=== PATIENT | female | born 1945 | race Caucasian/White ===

== ENCOUNTER → 2016-10-01 | Outpatient (CLI) | payer MEDICARE ==
[~2016-10-01] MED LIST: ALLOPURINOL100 MG PO; ASPIRIN EC325 MG PO; ATARAX10 MG PO; CIPRO500 MG PO; COL-RITE100 M1 PO; CRESTOR20 M1 PO; DOXYCYCLINE100 M3 PO; HYDROCHLOROTH12.5 MG PO; HYDROXYZINE HCL25 M1 PO; LEVOTHYROXINE0.1 MG PO; LISINOPRIL10 M1 PO; LISINOPRIL10 MG PO; LOPRESSOR25 MG PO; METFORMIN500 MG PO; MOTRIN800 MG PO; SERTRALINE50 MG PO; SIMVASTATIN40 MG PO; SLOW MAG 110 MG64 MG PO; SYNTHROID0.175 MG PO; TRAD5TAB1 PO; VITAMIN D32000 I1 PO; XANAX0.25 MG PO; ZANTAC 150150 MG PO; ZOLOFT50 MG PO
== END | disposition home or self-care (01) ==
LOC: MAMMO 17:16
DX: Z12.31 Encounter for screening mammogram for malignant neoplasm of breast (principal)

== ENCOUNTER 2017-09-23 00:13 | Inpatient (IN) | payer MEDICARE ==
[2017-09-23] VITALS (14 sets, daily range): BP systolic 91–179; BP diastolic 23–73
[~2017-09-23] VITALS: Ht 154.9 cm; Wt 104.1 kg
--- NOTE | ~2017-09-23 | EKG ---
[place], [place] ELECTROCARDIOGRAM REPORT NAME: WAN THORNTON UNIT #: [id number] ROOM: [facility] DOCTOR: ISAAC DRAFT REPORT BIRTHDATE: [birth year] [facility] Test Date: 2017-09-23 Test Time: 00:51:26 Pat Name: WAN THORNTON Department: ER Room: [facility] Gender: F Wrapping Machine Operator: Giovany Evans : 1945 Requested By: ANILA BALDWIN Order Number: [id number] Reading MD: Sen Rivera MD Measurements Intervals [place] Rate: 125 P: 49 AK: 112 QRS: 23 QRSD: 97 T: 167 QT: 341 QTc: 492 Interpretive Statements Sinus tachycardia Probable left atrial enlargement LBBB ? endocarditis Electronically Signed On 09-24-2017 9:58:45 PDT by Sen Rivera MD CM:EKGRPT:ELECTROCARDIOGRAM REPORT [id number] ANILA MELCHOR DRAFT REPORT ANILA BALDWIN DO
--- NOTE | ~2017-09-23 | CON ---
[place], [place] REPORT OF CONSULTATION NAME: WAN THORNTON UNIT #: [id number] ROOM: [facility] DOCTOR: AREN JOHNSTONAYLA BIRTHDATE: [birth year] DOS: 09/23/2017 LOCATION: The patient is examined in the Intensive Care Unit. CHIEF COMPLAINT: Severe shortness of breath. HISTORY OF PRESENT ILLNESS: This is a 72-year-old female, who presented to the Emergency Room with shortness of breath. I was called in the middle of the night, that the patient is with sinus tachycardia and ST depressions diffusely. The patient was in a significant shortness of breath and started on BiPAP. The patient's BNP was significantly elevated. Chest x-ray revealed vascular congestion. The patient did not have any chest discomfort. She noted she felt short of breath the night before under similar circumstances, but resolved and experienced more shortness of breath. The patient has a recent weight gain. She does have orthopnea and paroxysmal nocturnal dyspnea. The patient was treated with IV diuretics, started on a heparin and nitro drip and I have ordered a stat echocardiogram. She had a myocardial infarction, required cardiac catheterization and stenting in 2016. Right now, she is on BiPAP. She denies any chest discomfort. Troponin has gone up to 4. PAST MEDICAL HISTORY: Significant for coronary artery disease, diabetes, hypertension, hyperlipidemia, myocardial infarction, and previous stent placement. PAST SURGICAL HISTORY: Appendectomy, cholecystectomy, stent placement, and tonsillectomy. HOME MEDICATIONS: Levothyroxine, Zantac, Zoloft, Tradjenta, and hydroxyzine. ALLERGIES: None. SOCIAL HISTORY: She does not drink or smoke. FAMILY HISTORY: Positive for coronary artery disease. REVIEW OF SYSTEMS: Somewhat limited because of the critical nature of the situation. HEENT: No visual disturbances or hearing problems. CARDIOVASCULAR: As per HPI. RESPIRATORY: Significant for shortness of breath, orthopnea, and PND. GASTROINTESTINAL: No nausea. No vomiting. GENITOURINARY: No dysuria. NEUROLOGICAL: No dizziness. No syncope. ENDOCRINE: Intact. PHYSICAL EXAMINATION: VITAL SIGNS: Blood pressure is 109/60, she is in sinus rhythm; respiratory rate is okay, and pulse is 86. NECK: Supple, elevated JVD. HEENT: Unremarkable. [place], [place] REPORT OF CONSULTATION NAME: WAN THORNTON UNIT #: [id number] ROOM: [facility] DOCTOR: AYLA YOUNGER MD BIRTHDATE: [birth year] LUNGS: Diminished air entry bilaterally. Few coarse rhonchi and rales. HEART: Sounds are regular, distant, positive for S4. ABDOMEN: Obese, soft, and nontender. Good bowel sounds. NEUROLOGIC: Intact. SKIN: Warm and dry. DIAGNOSTIC DATA: EKG sinus tachycardia with diffuse ST depressions. LABORATORY DATA: Sodium is 139, potassium is 4, and creatinine is elevated at 1.8. BNP is significantly elevated. Troponin is 0.97 and is peaked up. Hemoglobin is 12.8 and hematocrit is 40.5. Hemoglobin A1c is 6.6. The last troponin is 4.27. IMPRESSION: 1. Acute non-ST elevation myocardial infarction. 2. Acute pulmonary edema. 3. Hypertension. 4. Obesity. 5. Hyperlipidemia. RECOMMENDATIONS: Start the patient on heparin, nitroglycerin, beta-blockers, and a very small dose of TAMARA inhibitors, monitoring the creatinine, lipid lowering agents, and start the patient on Plavix 300 bolus and 75 daily. Consideration should be given for a heart catheterization. We will discuss with the patient in detail the risks and benefits and we will follow up. AYLA YOUNGER MD CM:CONSTR:REPORT OF CONSULTATION [id number] 09/23/17 0810 interface
[~2017-09-23 00:13] MED LIST changes: -LEVOTHYROXINE0.1 MG PO; +LEVOTHYROXINE100 MC1 PO
[2017-09-23 00:38] LABS: BASO # 0.1 10*3/uL (0.0-0.1); BASO % 0.8 % (0.0-1.0); EOS # 1.3 10*3/uL (0.0-0.4); EOS % 10.9 % (1.0-4.0); HEMATOCRIT 40.5 % (37.0-47.0); HEMOGLOBIN 12.8 g/dl (12.0-16.0); LYMPH # 2.5 10*3/uL (1.3-4.4); LYMPH % 21.8 % (27.0-41.0); MEAN CELL VOLUME 89.6 fl (81.0-99.0); MEAN CORPUSCULAR HGB 28.3 pg (27.0-31.0); MEAN CORPUSCULAR HGB CONC 31.6 g/dl (33.0-37.0); MEAN PLATELET VOLUME 9.6 fl (9.6-12.3); MONO # 0.7 10*3/uL (0.1-1.0); NEUT % 60.2 % (47.0-73.0); PLATELET COUNT AUTOMATED 260 10*3/uL (130-400); RED BLOOD COUNT 4.52 10*6/uL (4.10-5.10); RED CELL DISTRI WIDTH 15.2 % (0-14.5); WHITE BLOOD COUNT 11.6 10*3/uL (4.8-10.8)
[2017-09-23 00:46] LABS: ABG BASE EXCESS -5.7 mmol/L (-2.0-2.0); ABG HCO3 19.3 mmol/l (22-26); ABG O2 SATURATION 99.2 % (95-97); ARTERIAL BLOOD GAS PCO2 38.9 mmHg (35-45); ARTERIAL BLOOD GAS PH 7.318 (7.35-7.45)
[2017-09-23 00:49] LABS: ACT PARTIAL THROMBO TIME 23.6 SECONDS (20.8-31.5); INTERNATIONAL NORM RATIO 0.9 (2.0-3.5)
[2017-09-23 00:58] LABS: ALBUMIN 3.6 gm/dl (3.1-4.5); CREATININE 1.89 mg/dL (0.55-1.02); TOTAL PROTEIN 7.4 gm/dL (6.4-8.2)
[2017-09-23 01:01] LABS: TROPONIN I 0.971 ng/ml (<0.045)
[2017-09-23] MEDS ORDERED: OMEPRAZOLE40 MG PO (03:29)
[2017-09-23] MEDS ORDERED: CLOPIDOGREL75 MG PO (03:30)
[2017-09-23] MEDS ORDERED: LIPITOR40 MG PO (03:30)
[2017-09-23] MEDS ORDERED: ZOLOFT100 MG PO (03:32)
[2017-09-23] MEDS ORDERED: IMDUR SA30 MG PO (03:34)
[2017-09-23 06:21] LABS: BASO # 0.1 10*3/uL (0.0-0.1); BASO % 0.6 % (0.0-1.0); EOS # 0.4 10*3/uL (0.0-0.4); EOS % 3.5 % (1.0-4.0); HEMATOCRIT 34.9 % (37.0-47.0); HEMOGLOBIN 11.5 g/dl (12.0-16.0); LYMPH # 0.9 10*3/uL (1.3-4.4); LYMPH % 8.3 % (27.0-41.0); MEAN CELL VOLUME 89.9 fl (81.0-99.0); MEAN CORPUSCULAR HGB 29.6 pg (27.0-31.0); MEAN PLATELET VOLUME 9.9 fl (9.6-12.3); MONO # 0.8 10*3/uL (0.1-1.0); MONO % 7.3 % (3.0-9.0); NEUT # 8.8 10*3/uL (2.3-7.9); NEUT % 79.8 % (47.0-73.0); PLATELET COUNT AUTOMATED 201 10*3/uL (130-400); RED BLOOD COUNT 3.88 10*6/uL (4.10-5.10); RED CELL DISTRI WIDTH 15.1 % (0-14.5)
[2017-09-23 06:31] LABS: CREATININE 1.96 mg/dL (0.55-1.02); POTASSIUM 4.4 mmol/L (3.5-5.1)
[2017-09-23 06:35] LABS: FREE T4 0.77 ng/dl (0.76-1.46); PHOSPHOROUS 3.6 mg/dL (2.5-4.9)
[2017-09-23 06:42] LABS: THYROID STIM HORMONE (HS) 2.08 uIU/ml (0.358-4.75)
[2017-09-23 08:10] LABS: VITAMIN D, 25-HYDROXY 12.8 ng/mL (30-100)
[2017-09-23] MEDS ORDERED: FUROSEMIDE40 MG PO ×2 (08:16)
[2017-09-23] MEDS ORDERED: LOPRESSOR25 MG PO (08:16)
== END 2017-09-23 09:14 | disposition short-term general hospital (02) | DRG 280 ==
LOC: ED 00:13 → ICCU 02:18 → EDHOLD 02:18 → ICCU 02:47
PROVIDERS: Internal Medicine; Student in an Organized Health Care Education/Training Program
DX: I21.4 Non-ST elevation (NSTEMI) myocardial infarction (principal); N17.0 Acute kidney failure with tubular necrosis; J96.01 Acute respiratory failure with hypoxia; R65.10 Systemic inflammatory response syndrome (SIRS) of non-infectious origin without acute organ dysfunction; E11.22 Type 2 diabetes mellitus with diabetic chronic kidney disease; I13.0 Hypertensive heart and chronic kidney disease with heart failure and stage 1 through stage 4 chronic kidney disease, or unspecified chronic kidney disease; E11.65 Type 2 diabetes mellitus with hyperglycemia; I50.9 Heart failure, unspecified; E66.01 Morbid (severe) obesity due to excess calories; E87.2 Acidosis; Z68.41 Body mass index [BMI] 40.0-44.9, adult; M10.9 Gout, unspecified; E78.5 Hyperlipidemia, unspecified; D72.829 Elevated white blood cell count, unspecified; N18.3 Chronic kidney disease, stage 3 (moderate); I25.119 Atherosclerotic heart disease of native coronary artery with unspecified angina pectoris; I25.2 Old myocardial infarction; Z95.5 Presence of coronary angioplasty implant and graft; Z90.49 Acquired absence of other specified parts of digestive tract; Z90.89 Acquired absence of other organs; Z82.49 Family history of ischemic heart disease and other diseases of the circulatory system; Z83.3 Family history of diabetes mellitus; Z79.899 Other long term (current) drug therapy; Z82.3 Family history of stroke; Z85.89 Personal history of malignant neoplasm of other organs and systems

== ENCOUNTER 2020-04-28 07:12 | Inpatient (IN) | payer MEDICARE ==
[~2020-04-28] VITALS: Ht 149.8 cm; Wt 118.0 kg
[~2020-04-28 07:12] MED LIST changes: +CLOPIDOGREL75 MG PO; +FUROSEMIDE40 MG PO; +IMDUR SA30 MG PO; +LIPITOR40 MG PO; +OMEPRAZOLE40 MG PO; +ZOLOFT100 MG PO
[2020-04-28 07:14] VITALS: BP 104/58
[2020-04-28 08:00] VITALS: BP 135/58
[2020-04-28 08:17] LABS: HEMATOCRIT 36.5 % (37.0-47.0); MEAN CELL VOLUME 94.3 fl (81.0-99.0); MEAN CORPUSCULAR HGB 31.3 pg (27.0-31.0); MEAN CORPUSCULAR HGB CONC 33.2 g/dl (33.0-37.0); PLATELET COUNT AUTOMATED 142 10*3/uL (130-400); RED BLOOD COUNT 3.87 10*6/uL (4.10-5.10); RED CELL DISTRI WIDTH 13.4 % (0-14.5); WHITE BLOOD COUNT 6.7 10*3/uL (4.8-10.8)
[2020-04-28 08:24] LABS: ACT PARTIAL THROMBO TIME 32.2 SECONDS (20.0-32.1)
[2020-04-28 08:29] LABS: ALBUMIN 2.4 gm/dl (3.1-4.5); CREATININE 2.77 mg/dL (0.55-1.02); POTASSIUM 3.5 mmol/L (3.5-5.1); TOTAL PROTEIN 6.9 gm/dL (6.4-8.2)
[2020-04-28 08:34] LABS: TROPONIN I 0.332 ng/ml (<0.045)
[2020-04-28 08:38] LABS: BASOPHILS 1 % (0-1); DOHLE BODIES FEW; PLATELET SUFFICIENCY NORMAL (NORMAL); TOTAL CELLS COUNTED 100 #CELLS; VACUOLATION OF NEUTROPHILS SLIGHT
[2020-04-28 08:39] LABS: BURR CELLS FEW; POLYCHROMASIA SLIGHT; TOXIC GRANULATION SLIGHT
[2020-04-28 08:41] LABS: BILIRUBIN 1+ (Negative); BLOOD Negative (Negative); CLARITY Cloudy (Clear); COLOR Dark Yellow (Yellow); GLUCOSE Negative (Negative); KETONE Trace (Negative); LEUKO ESTERASE Trace (Negative); NITRITE Negative (Negative); SPECIFIC GRAVITY 1.025 (1.001-1.030)
[2020-04-28 08:59] LABS: BACTERIA 4+; WBC 21-30 wbc/hpf (0-5)
[2020-04-28 09:53] LABS: ABG BASE EXCESS -3.6 mmol/L (-2.0-2.0); ARTERIAL BLOOD GAS PH 7.454 (7.35-7.45); ARTERIAL BLOOD GAS PO2 71.2 (80-90)
[2020-04-28 11:12] LABS: URINE AMPHETAMINES < 1000 (1000ng/ml); URINE BARBITURATES < 200 (200ng/ml); URINE BENZODIAZEPINES < 200 (200ng/ml); URINE CANNABINOIDS (THC) < 50 (50ng/ml); URINE COCAINE < 300 (300ng/ml); URINE METHADONE < 300 (300ng/ml); URINE OPIATES < 300 (300ng/ml)
[2020-04-28 11:14] LABS: URINE PHENCYCLIDINE < 25 (25ng/ml)
[2020-04-28 16:00] VITALS: BP 125/68
[2020-04-28 20:00] VITALS: BP 155/62
[2020-04-29] VITALS: BP 129/73
[2020-04-29 06:19] LABS: CREATININE 2.73 mg/dL (0.55-1.02); POTASSIUM 3.8 mmol/L (3.5-5.1)
[2020-04-29 06:31] LABS: HEMATOCRIT 32.9 % (37.0-47.0); MEAN CELL VOLUME 91.9 fl (81.0-99.0); MEAN CORPUSCULAR HGB 30.7 pg (27.0-31.0); MEAN CORPUSCULAR HGB CONC 33.4 g/dl (33.0-37.0); MEAN PLATELET VOLUME 10.8 fl (9.6-12.3); PLATELET COUNT AUTOMATED 123 10*3/uL (130-400); RED BLOOD COUNT 3.58 10*6/uL (4.10-5.10); RED CELL DISTRI WIDTH 13.6 % (0-14.5); WHITE BLOOD COUNT 11.1 10*3/uL (4.8-10.8)
[2020-04-29 06:52] LABS: BURR CELLS FEW; PLATELET SUFFICIENCY LOW (NORMAL); TOTAL CELLS COUNTED 100 #CELLS
[2020-04-29 08:00] VITALS: BP 176/69
[2020-04-29 08:44] LABS: VITAMIN D, 25-HYDROXY 13.9 ng/mL (30-100)
[2020-04-29 12:00] VITALS: BP 154/68
[2020-04-29 16:00] VITALS: BP 150/60
[2020-04-29 20:00] VITALS: BP 182/66
[2020-04-30] VITALS (7 sets, daily range): BP systolic 152–190; BP diastolic 67–91
[2020-04-30 05:11] LABS: HEMATOCRIT 30.5 % (37.0-47.0); MEAN CELL VOLUME 92.4 fl (81.0-99.0); MEAN CORPUSCULAR HGB 30.9 pg (27.0-31.0); MEAN CORPUSCULAR HGB CONC 33.4 g/dl (33.0-37.0); MEAN PLATELET VOLUME 11.1 fl (9.6-12.3); NUCLEATED RED BLOOD CELL 0.2 % (0.0-0.0); PLATELET COUNT AUTOMATED 143 10*3/uL (130-400); RED CELL DISTRI WIDTH 14.1 % (0-14.5); WHITE BLOOD COUNT 14.1 10*3/uL (4.8-10.8)
[2020-04-30 05:17] LABS: ALBUMIN 1.8 gm/dl (3.1-4.5); CREATININE 2.62 mg/dL (0.55-1.02); FREE T4 0.35 ng/dl (0.76-1.46); POTASSIUM 3.7 mmol/L (3.5-5.1); TOTAL PROTEIN 6.2 gm/dL (6.4-8.2)
[2020-04-30 05:22] LABS: THYROID STIM HORMONE (HS) 24.6 uIU/ml (0.358-4.75)
[2020-04-30 05:48] LABS: BURR CELLS FEW; PLATELET SUFFICIENCY NORMAL (NORMAL); TOTAL CELLS COUNTED 100 #CELLS; VACUOLATION OF NEUTROPHILS SLIGHT
[2020-04-30 05:49] LABS: DOHLE BODIES FEW; TOXIC GRANULATION SLIGHT
[2020-05-01] VITALS: BP 141/78
[2020-05-01 06:27] LABS: HEMATOCRIT 27.4 % (37.0-47.0); MEAN CELL VOLUME 92.6 fl (81.0-99.0); MEAN CORPUSCULAR HGB 30.7 pg (27.0-31.0); MEAN CORPUSCULAR HGB CONC 33.2 g/dl (33.0-37.0); MEAN PLATELET VOLUME 10.7 fl (9.6-12.3); NUCLEATED RED BLOOD CELL 0.4 % (0.0-0.0); PLATELET COUNT AUTOMATED 138 10*3/uL (130-400); RED BLOOD COUNT 2.96 10*6/uL (4.10-5.10); RED CELL DISTRI WIDTH 14.7 % (0-14.5); WHITE BLOOD COUNT 9.6 10*3/uL (4.8-10.8)
[2020-05-01 06:49] LABS: ALBUMIN 1.6 gm/dl (3.1-4.5); CREATININE 2.6 mg/dL (0.55-1.02); FREE T4 0.28 ng/dl (0.76-1.46); POTASSIUM 3.7 mmol/L (3.5-5.1); TOTAL PROTEIN 5.8 gm/dL (6.4-8.2)
[2020-05-01 07:12] LABS: BURR CELLS FEW; PLATELET SUFFICIENCY NORMAL (NORMAL); ROULEAUX SLIGHT; TOTAL CELLS COUNTED 100 #CELLS; TOXIC GRANULATION SLIGHT; VACUOLATION OF NEUTROPHILS SLIGHT
[2020-05-01 07:13] LABS: POLYCHROMASIA SLIGHT
[2020-05-01 08:00] VITALS: BP 140/80
[2020-05-01 12:00] VITALS: BP 135/58
[2020-05-01 16:00] VITALS: BP 148/63
[2020-05-01 20:00] VITALS: BP 153/75
[2020-05-02] VITALS (7 sets, daily range): BP systolic 144–170; BP diastolic 46–78
[2020-05-02 06:24] LABS: HEMATOCRIT 29.7 % (37.0-47.0); MEAN CELL VOLUME 92.5 fl (81.0-99.0); MEAN CORPUSCULAR HGB 30.5 pg (27.0-31.0); MEAN PLATELET VOLUME 10.8 fl (9.6-12.3); NUCLEATED RED BLOOD CELL 0.1 10*3/uL (0.0-0.0); NUCLEATED RED BLOOD CELL 0.5 % (0.0-0.0); PLATELET COUNT AUTOMATED 177 10*3/uL (130-400); RED BLOOD COUNT 3.21 10*6/uL (4.10-5.10); RED CELL DISTRI WIDTH 15.4 % (0-14.5); WHITE BLOOD COUNT 10.8 10*3/uL (4.8-10.8)
[2020-05-02 06:54] LABS: ALBUMIN 1.5 gm/dl (3.1-4.5); CREATININE 2.41 mg/dL (0.55-1.02); FREE T4 0.49 ng/dl (0.76-1.46); POTASSIUM 3.4 mmol/L (3.5-5.1); TOTAL PROTEIN 5.9 gm/dL (6.4-8.2)
[2020-05-02 06:59] LABS: TOTAL CELLS COUNTED 100 #CELLS
[2020-05-02 07:00] LABS: BURR CELLS MODERATE; PLATELET SUFFICIENCY NORMAL (NORMAL); ROULEAUX SLIGHT; SCHISTOCYTES FEW; TOXIC GRANULATION SLIGHT
[2020-05-02 07:02] LABS: THYROID STIM HORMONE (HS) 12.5 uIU/ml (0.358-4.75)
[2020-05-03] VITALS (8 sets, daily range): BP systolic 117–164; BP diastolic 44–85
[2020-05-03 06:30] LABS: HEMATOCRIT 30.7 % (37.0-47.0); MEAN CELL VOLUME 92.2 fl (81.0-99.0); MEAN CORPUSCULAR HGB 30.3 pg (27.0-31.0); MEAN CORPUSCULAR HGB CONC 32.9 g/dl (33.0-37.0); MEAN PLATELET VOLUME 10.7 fl (9.6-12.3); NUCLEATED RED BLOOD CELL 0.2 10*3/uL (0.0-0.0); NUCLEATED RED BLOOD CELL 1.5 % (0.0-0.0); RED BLOOD COUNT 3.33 10*6/uL (4.10-5.10); RED CELL DISTRI WIDTH 16.1 % (0-14.5); WHITE BLOOD COUNT 12.4 10*3/uL (4.8-10.8)
[2020-05-03 06:36] LABS: PLATELET COUNT AUTOMATED 247 10*3/uL (130-400)
[2020-05-03 06:40] LABS: ATYPICAL LYMPHS 1 % (0-0); TOTAL CELLS COUNTED 100 #CELLS
[2020-05-03 06:41] LABS: BURR CELLS MODERATE; PLATELET SUFFICIENCY NORMAL (NORMAL); POLYCHROMASIA SLIGHT; SCHISTOCYTES FEW; TOXIC GRANULATION SLIGHT
[2020-05-03 06:52] LABS: POTASSIUM 3.9 mmol/L (3.5-5.1)
[2020-05-03 07:15] LABS: ALBUMIN 1.4 gm/dl (3.1-4.5); CREATININE 2.35 mg/dL (0.55-1.02); FREE T4 0.45 ng/dl (0.76-1.46); THYROID STIM HORMONE (HS) 10.9 uIU/ml (0.358-4.75); TOTAL PROTEIN 6.1 gm/dL (6.4-8.2)
[2020-05-03 17:46] LABS: BILIRUBIN 1+ (Negative); BLOOD Negative (Negative); CLARITY Cloudy (Clear); COLOR Dark Yellow (Yellow); GLUCOSE Negative (Negative); KETONE Negative (Negative); LEUKO ESTERASE Negative (Negative); NITRITE Negative (Negative); PH 5.5 (4.5-8.0); SPECIFIC GRAVITY 1.025 (1.001-1.030)
[2020-05-03 17:49] LABS: URINE CREATININE RANDOM 92.9 mg/dL
[2020-05-03 17:51] LABS: BACTERIA 2+; EPITHELIAL CELLS TNTC; RBC 0-2 rbc/hpf (0-2); URIC ACID CRYSTALS TRACE; WBC TNTC wbc/hpf (0-5)
[2020-05-04 06:21] LABS: MEAN CELL VOLUME 94.8 fl (81.0-99.0); MEAN CORPUSCULAR HGB 30.7 pg (27.0-31.0); MEAN CORPUSCULAR HGB CONC 32.4 g/dl (33.0-37.0); MEAN PLATELET VOLUME 10.5 fl (9.6-12.3); NUCLEATED RED BLOOD CELL 0.4 10*3/uL (0.0-0.0); NUCLEATED RED BLOOD CELL 2.4 % (0.0-0.0); PLATELET COUNT AUTOMATED 319 10*3/uL (130-400); RED BLOOD COUNT 3.06 10*6/uL (4.10-5.10); RED CELL DISTRI WIDTH 17.1 % (0-14.5); WHITE BLOOD COUNT 17.4 10*3/uL (4.8-10.8)
[2020-05-04 06:27] LABS: ALBUMIN 1.4 gm/dl (3.1-4.5); BILIRUBIN, DIRECT 3.8 mg/dL (0.0-0.2); CREATININE 2.38 mg/dL (0.55-1.02); POTASSIUM 3.8 mmol/L (3.5-5.1); TOTAL PROTEIN 6.4 gm/dL (6.4-8.2)
[2020-05-04 06:34] LABS: THYROID STIM HORMONE (HS) 13.2 uIU/ml (0.358-4.75)
[2020-05-04 06:40] LABS: FREE T4 0.29 ng/dl (0.76-1.46)
[2020-05-04 06:45] LABS: TOTAL CELLS COUNTED 100 #CELLS
[2020-05-04 06:46] LABS: BURR CELLS MODERATE; PLATELET SUFFICIENCY NORMAL (NORMAL); POLYCHROMASIA SLIGHT; ROULEAUX SLIGHT
[2020-05-04 08:00] VITALS: BP 130/66; BP 98/48
[2020-05-04 12:00] VITALS: BP 137/52
[2020-05-04 16:00] VITALS: BP 118/36
[2020-05-04 20:00] VITALS: BP 150/53
[2020-05-05] VITALS: BP 134/56
[2020-05-05 04:00] VITALS: BP 158/71
[2020-05-05 06:00] LABS: ALBUMIN 1.4 gm/dl (3.1-4.5); CREATININE 2.75 mg/dL (0.55-1.02); FREE T4 0.26 ng/dl (0.76-1.46); TOTAL PROTEIN 6.4 gm/dL (6.4-8.2)
[2020-05-05 06:06] LABS: THYROID STIM HORMONE (HS) 12.3 uIU/ml (0.358-4.75)
[2020-05-05 06:07] LABS: HEMATOCRIT 27.2 % (37.0-47.0); MEAN CELL VOLUME 93.5 fl (81.0-99.0); MEAN CORPUSCULAR HGB 30.2 pg (27.0-31.0); MEAN CORPUSCULAR HGB CONC 32.4 g/dl (33.0-37.0); MEAN PLATELET VOLUME 10.5 fl (9.6-12.3); NUCLEATED RED BLOOD CELL 0.6 10*3/uL (0.0-0.0); NUCLEATED RED BLOOD CELL 2.6 % (0.0-0.0); PLATELET COUNT AUTOMATED 373 10*3/uL (130-400); RED BLOOD COUNT 2.91 10*6/uL (4.10-5.10); RED CELL DISTRI WIDTH 17.4 % (0-14.5); WHITE BLOOD COUNT 21.4 10*3/uL (4.8-10.8)
[2020-05-05 06:52] LABS: TOTAL CELLS COUNTED 100 #CELLS
[2020-05-05 06:53] LABS: BURR CELLS FEW; PLATELET SUFFICIENCY NORMAL (NORMAL); POLYCHROMASIA SLIGHT
== END 2020-05-05 11:49 | disposition short-term general hospital (02) | DRG 871 ==
LOC: ED 07:12 → EDBD 07:16 → ED 07:16 → EDHOLD 12:14 → 5E 12:14 → ICCU 05-04 10:57
PROVIDERS: Emergency Medicine; Internal Medicine; Internal Medicine Nephrology; Student in an Organized Health Care Education/Training Program; ADMIT Family Medicine; ATTEND Family Medicine
PROC: 05HY33Z Insertion of Infusion Device into Upper Vein, Percutaneous Approach (ICD-10-PCS; principal; 2020-04-28)
PROC: B54MZZA Ultrasonography of Right Upper Extremity Veins, Guidance (ICD-10-PCS; 2020-04-28)
DX: A41.01 Sepsis due to Methicillin susceptible Staphylococcus aureus (principal); R65.21 Severe sepsis with septic shock; N17.0 Acute kidney failure with tubular necrosis; E43 Unspecified severe protein-calorie malnutrition; I33.0 Acute and subacute infective endocarditis; G93.41 Metabolic encephalopathy; I21.A1 Myocardial infarction type 2; N39.0 Urinary tract infection, site not specified; N18.4 Chronic kidney disease, stage 4 (severe); E87.1 Hypo-osmolality and hyponatremia; E87.3 Alkalosis; Z68.43 Body mass index [BMI] 50.0-59.9, adult; R09.89 Other specified symptoms and signs involving the circulatory and respiratory systems; B95.61 Methicillin susceptible Staphylococcus aureus infection as the cause of diseases classified elsewhere; Z20.822 Contact with and (suspected) exposure to COVID-19; I25.10 Atherosclerotic heart disease of native coronary artery without angina pectoris; E03.9 Hypothyroidism, unspecified; E86.0 Dehydration; E11.22 Type 2 diabetes mellitus with diabetic chronic kidney disease; E11.65 Type 2 diabetes mellitus with hyperglycemia; R74.01 Elevation of levels of liver transaminase levels; E80.6 Other disorders of bilirubin metabolism; E78.5 Hyperlipidemia, unspecified; M10.9 Gout, unspecified; I12.9 Hypertensive chronic kidney disease with stage 1 through stage 4 chronic kidney disease, or unspecified chronic kidney disease; E66.01 Morbid (severe) obesity due to excess calories; Z90.49 Acquired absence of other specified parts of digestive tract; Z95.5 Presence of coronary angioplasty implant and graft; Z95.1 Presence of aortocoronary bypass graft; Z87.891 Personal history of nicotine dependence; Z79.82 Long term (current) use of aspirin; Z79.899 Other long term (current) drug therapy; I25.2 Old myocardial infarction; Z82.49 Family history of ischemic heart disease and other diseases of the circulatory system; Z83.3 Family history of diabetes mellitus